=== PATIENT | female | born 1990 | race Caucasian/White ===

== ENCOUNTER 2016-12-17 15:38 | Outpatient (CLI) | payer MEDICAID ==
[2016-12-17] MEDS ORDERED: ONDANSETRON HCL 8 MG TABLET PO ONE (16:16)
[2016-12-17] MEDS ORDERED: ONDANSETRON 4 MG TAB.RAPDIS ONE (16:42)
[2016-12-17] MEDS ORDERED: METRONIDAZOLE 500 MG TABLET PO ONE (17:00)
--- NOTE | 2016-12-17 17:42 | RADIOLOGY REPORT (SQ) ---
EXAM DESCRIPTION: U/S OB LIMITED COMPLETED DATE/TIME: 12/17/2016 5:33 pm REASON FOR STUDY: irreg contractions, 23wks, eval cervical length COMPARISON: None. TECHNIQUE: Limited transvaginal and transabdominal grayscale ultrasound for evaluation of specific r equested obstetrical parameters. LIMITATIONS: None. FINDINGS: CERVICAL LENGTH: 3.6 cm. Closed. JOSEPH: Largest pocket 6.4 cm. FHR: 152 beats per minute. PRESENTATION: Breech. OTHER: No other significant findings. IMPRESSION: LIMITED OBSTETRICAL ULTRASOUND WITH MEASURED PARAMETERS DELINEATED ABOVE. Trimester of : Second trimester - 13 weeks 1 day to 27 weeks 6 days. TECHNICAL DOCUMENTATION: JOB ID: [id number] [employer]- All Rights Reserved
[2016-12-17 19:02] LABS: CHLAM PCR NOT DETECTED (NOT DETECT)
[2016-12-17 19:16] LABS: URINE BARBITURATES SCREEN NEGATIVE; URINE METHADONE SCREEN NEGATIVE; URINE OPIATES LOW NEGATIVE; URINE PHENCYCLIDINE SCREEN NEGATIVE
[2016-12-17 19:59] LABS: APPEARANCE,URINE CLEAR; BILIRUBIN,URINE NEGATIVE (NEGATIVE); GLUCOSE, URINE NEGATIVE (NEGATIVE); KETONES,URINE NEGATIVE (NEGATIVE); LEUKOCYTE ESTERASE,URINE NEGATIVE (NEGATIVE); NITRITE,URINE NEGATIVE (NEGATIVE); PROTEIN,URINE NEGATIVE (NEGATIVE); URINE SPECIFIC GRAVITY 1.004; UROBILINOGEN,URINE NEGATIVE mg/dL (<2.0)
== END 2016-12-17 19:20 | disposition home or self-care (01) ==
LOC: LC 15:38
PROVIDERS: ATTEND Student in an Organized Health Care Education/Training Program
PROC: 4A1HXCZ Monitoring of Products of Conception, Cardiac Rate, External Approach (ICD-10-PCS; principal; 2016-12-17)
DX: Z36 Encounter for antenatal screening of mother (principal); Z34.92 Encounter for supervision of normal pregnancy, unspecified, second trimester; Z3A.23 23 weeks gestation of pregnancy
CPT/HCPCS: 59899; 81001; 87081; 80307; 87491; 87591; 76815; S0119; J3490

== ENCOUNTER 2017-01-08 19:33 | Outpatient (CLI) | payer MEDICAID ==
[2017-01-08 20:14] LABS: APPEARANCE,URINE CLEAR; BILIRUBIN,URINE NEGATIVE (NEGATIVE); GLUCOSE, URINE NEGATIVE (NEGATIVE); KETONES,URINE NEGATIVE (NEGATIVE); LEUKOCYTE ESTERASE,URINE NEGATIVE (NEGATIVE); NITRITE,URINE NEGATIVE (NEGATIVE); PROTEIN,URINE NEGATIVE (NEGATIVE); URINE SPECIFIC GRAVITY 1.001; UROBILINOGEN,URINE NEGATIVE mg/dL (<2.0)
[2017-01-08 20:53] LABS: URINE BARBITURATES SCREEN NEGATIVE; URINE METHADONE SCREEN NEGATIVE; URINE OPIATES LOW NEGATIVE; URINE PHENCYCLIDINE SCREEN NEGATIVE
--- NOTE | 2017-01-08 21:03 | RADIOLOGY REPORT (SQ) ---
EXAM DESCRIPTION: U/S OB LIMITED COMPLETED DATE/TIME: 01/08/2017 8:43 pm REASON FOR STUDY: cervical length, well being COMPARISON: 12/17/2016. TECHNIQUE: Limited transvaginal and transabdominal grayscale ultrasound for evaluation of specific r equested obstetrical parameters. LIMITATIONS: None. FINDINGS: CERVICAL LENGTH: 3.4 cm. Closed. JOSEPH: Largest pocket 7.1 cm. FHR: 152 beats per minute. PRESENTATION: Cephalic. PLACENTA: Anterior. OTHER: No other significant findings. IMPRESSION: LIMITED OBSTETRICAL ULTRASOUND WITH MEASURED PARAMETERS DELINEATED ABOVE. Trimester of : Second trimester - 13 weeks 1 day to 27 weeks 6 days. TECHNICAL DOCUMENTATION: JOB ID: [id number] [employer]- All Rights Reserved
== END 2017-01-08 22:07 | disposition home or self-care (01) ==
LOC: LC 19:33
PROVIDERS: ATTEND Obstetrics & Gynecology
DX: O47.00 False labor before 37 completed weeks of gestation, unspecified trimester (principal)
CPT/HCPCS: 76815; 80307; 81001

== ENCOUNTER 2017-01-11 08:48 | Outpatient (CLI) | payer MEDICAID ==
[2017-01-11 09:32] LABS: APPEARANCE,URINE CLOUDY; BILIRUBIN,URINE NEGATIVE (NEGATIVE); GLUCOSE, URINE NEGATIVE (NEGATIVE); KETONES,URINE TRACE mg/dL (NEGATIVE); LEUKOCYTE ESTERASE,URINE TRACE (NEGATIVE); NITRITE,URINE NEGATIVE (NEGATIVE); PROTEIN,URINE 100 mg/dL (NEGATIVE); URIC ACID CRYSTALS,URINE MODERATE /HPF; URINE SPECIFIC GRAVITY 1.034
[2017-01-11 09:33] LABS: AMNISURE (ROM) NEGATIVE (NEGATIVE)
[2017-01-11 09:50] LABS: URINE BARBITURATES SCREEN NEGATIVE; URINE METHADONE SCREEN NEGATIVE; URINE OPIATES LOW NEGATIVE; URINE PHENCYCLIDINE SCREEN NEGATIVE
--- NOTE | 2017-01-11 12:26 | RADIOLOGY REPORT (SQ) ---
EXAM DESCRIPTION: U/S OB LIMITED COMPLETED DATE/TIME: 01/11/2017 12:17 pm REASON FOR STUDY: cervical length, JOSEPH - patient with contractions COMPARISON: 01/08/2017. TECHNIQUE: Limited transabdominal grayscale ultrasound for evaluation of specific requested obstetri madina parameters. LIMITATIONS: None. FINDINGS: CERVICAL LENGTH: 3.1 cm. Closed. JOSEPH: Largest pocket 9.2 cm. FHR: 152 beats per minute. PRESENTATION: Cephalic. OTHER: No other significant findings. IMPRESSION: LIMITED OBSTETRICAL ULTRASOUND WITH MEASURED PARAMETERS DELINEATED ABOVE. Trimester of : Second trimester - 13 weeks 1 day to 27 weeks 6 days. TECHNICAL DOCUMENTATION: JOB ID: [id number] [employer]- All Rights Reserved
[2017-01-11] MEDS ORDERED: IBUPROFEN 800 MG TABLET PO ONE (12:58)
[2017-01-11] MEDS ORDERED: IBUPROFEN 800 MG TABLET ONE (13:03)
[2017-01-11 15:09] LABS: CHLAM PCR NOT DETECTED (NOT DETECT)
== END 2017-01-11 15:35 | disposition home or self-care (01) ==
LOC: LC 08:48
PROVIDERS: ATTEND Specialist
PROC: 4A1HXCZ Monitoring of Products of Conception, Cardiac Rate, External Approach (ICD-10-PCS; principal; 2017-01-11)
DX: O47.02 False labor before 37 completed weeks of gestation, second trimester (principal); Z3A.27 27 weeks gestation of pregnancy
CPT/HCPCS: 59899; 84112; 87210; 81001; 80307; 87491; 87591; 76815; J3490

== ENCOUNTER 2017-01-16 14:52 | Outpatient (CLI) | payer MEDICAID ==
[2017-01-16 15:40] LABS: APPEARANCE,URINE CLEAR; BILIRUBIN,URINE NEGATIVE (NEGATIVE); GLUCOSE, URINE NEGATIVE (NEGATIVE); KETONES,URINE 20 mg/dL (NEGATIVE); LEUKOCYTE ESTERASE,URINE NEGATIVE (NEGATIVE); NITRITE,URINE NEGATIVE (NEGATIVE); PROTEIN,URINE NEGATIVE (NEGATIVE); URINE SPECIFIC GRAVITY 1.001; UROBILINOGEN,URINE NEGATIVE mg/dL (<2.0)
[2017-01-16 15:59] LABS: URINE BARBITURATES SCREEN NEGATIVE; URINE METHADONE SCREEN NEGATIVE; URINE OPIATES LOW NEGATIVE; URINE PHENCYCLIDINE SCREEN NEGATIVE
--- NOTE | 2017-01-16 16:21 | RADIOLOGY REPORT (SQ) ---
EXAM DESCRIPTION: U/S OB LIMITED COMPLETED DATE/TIME: 01/16/2017 4:12 pm REASON FOR STUDY: ctx, bleeding. Cervical length COMPARISON: None. TECHNIQUE: Limited transabdominal grayscale ultrasound for evaluation of specific requested obstetri madina parameters. LIMITATIONS: None. FINDINGS: CERVICAL LENGTH: 3.4 cm Closed. JOSEPH: 18.3 cm. FHR: 136 beats per minute. PRESENTATION: Cephalic. OTHER: No other significant findings. IMPRESSION: LIMITED OBSTETRICAL ULTRASOUND WITH MEASURED PARAMETERS DELINEATED ABOVE. Trimester of : Second trimester - 13 weeks 1 day to 27 weeks 6 days. TECHNICAL DOCUMENTATION: JOB ID: [id number] [employer]- All Rights Reserved
== END 2017-01-16 17:08 | disposition home or self-care (01) ==
LOC: LC 14:52
PROVIDERS: ATTEND Obstetrics & Gynecology
DX: O47.03 False labor before 37 completed weeks of gestation, third trimester (principal); Z3A.28 28 weeks gestation of pregnancy
CPT/HCPCS: 76815; 80307; 81001

== ENCOUNTER 2017-01-24 01:28 | Outpatient (CLI) | payer MEDICAID ==
[2017-01-24 02:33] LABS: APPEARANCE,URINE CLEAR; BILIRUBIN,URINE NEGATIVE (NEGATIVE); GLUCOSE, URINE NEGATIVE (NEGATIVE); KETONES,URINE NEGATIVE (NEGATIVE); LEUKOCYTE ESTERASE,URINE SMALL (NEGATIVE); NITRITE,URINE NEGATIVE (NEGATIVE); PROTEIN,URINE 30 mg/dL (NEGATIVE); URINE SPECIFIC GRAVITY 1.011; UROBILINOGEN,URINE NEGATIVE mg/dL (<2.0)
[2017-01-24 02:46] LABS: URINE BARBITURATES SCREEN NEGATIVE; URINE METHADONE SCREEN NEGATIVE; URINE OPIATES LOW NEGATIVE; URINE PHENCYCLIDINE SCREEN NEGATIVE
[2017-01-24 04:30] LABS: CHLAM PCR NOT DETECTED (NOT DETECT)
--- NOTE | 2017-01-24 04:39 | RADIOLOGY REPORT (SQ) ---
EXAM DESCRIPTION: U/S OB LIMITED COMPLETED DATE/TIME: 01/24/2017 3:41 am REASON FOR STUDY: Cervical length d/t contractions . The patient is 29 weeks 0 days pregnan t. COMPARISON: US OB 01/16/2017. TECHNIQUE: Limited transvaginal and transabdominal grayscale ultrasound for evaluation of specific r equested obstetrical parameters. LIMITATIONS: None. FINDINGS: CERVICAL LENGTH: 3.1 cm. Closed. FHR: 125 beats per minute. PRESENTATION: Vertex. IMPRESSION: LIMITED OBSTETRICAL ULTRASOUND WITH MEASURED PARAMETERS DELINEATED ABOVE. Trimester of : Third trimester - 28 weeks to delivery. TECHNICAL DOCUMENTATION: JOB ID: [id number] [employer]- All Rights Reserved
== END 2017-01-24 06:25 | disposition home or self-care (01) ==
LOC: LC 01:28
PROVIDERS: ATTEND Obstetrics & Gynecology
DX: O47.03 False labor before 37 completed weeks of gestation, third trimester (principal); Z3A.29 29 weeks gestation of pregnancy
CPT/HCPCS: 76815; 80307; 81001; 87491; 87591

== ENCOUNTER 2017-02-10 15:41 | Inpatient (IN) | payer MEDICAID ==
[2017-02-10] MEDS ORDERED: MORPHINE SULFATE 10 MG/ML INJ ONE (16:43)
[2017-02-10 17:19] LABS: APPEARANCE,URINE CLEAR; BILIRUBIN,URINE NEGATIVE (NEGATIVE); GLUCOSE, URINE NEGATIVE (NEGATIVE); KETONES,URINE NEGATIVE (NEGATIVE); LEUKOCYTE ESTERASE,URINE NEGATIVE (NEGATIVE); NITRITE,URINE NEGATIVE (NEGATIVE); PROTEIN,URINE NEGATIVE (NEGATIVE); URINE SPECIFIC GRAVITY 1.002; UROBILINOGEN,URINE NEGATIVE mg/dL (<2.0)
[2017-02-10 17:46] LABS: URINE BARBITURATES SCREEN NEGATIVE; URINE METHADONE SCREEN NEGATIVE; URINE OPIATES LOW NEGATIVE; URINE PHENCYCLIDINE SCREEN NEGATIVE
[2017-02-10] MEDS ORDERED: MAGNESIUM SULFATE 8 GM/200 ML RTUPB IV ONE (19:02)
[2017-02-10] MEDS ORDERED: BETAMET ACET/BETAMET NA INJ 6 MG/1 ML ONE (19:02)
[2017-02-10] MEDS ORDERED: BETAMET ACET/BETAMET NA INJ 6 MG/1 ML IM ONE (19:36)
[2017-02-10] MEDS ORDERED: ONDANSETRON HCL INJ/PF 4 MG/2 ML SDV ONE (19:37)
[2017-02-10] MEDS ORDERED: MAGNESIUM SULFATE 20 GM/500 ML RTUINJ IV PRN (20:00)
[2017-02-10] MEDS ORDERED: MAGNESIUM SULFATE 4 GM/100 ML RTUPB IV ONE (20:21)
[2017-02-10] MEDS ORDERED: PENICILLIN G-K 5 MILLION UNIT VIAL ONE (20:22)
[2017-02-10] MEDS ORDERED: PENICILLIN G POTASSIUM 5,000,000 UNIT in DEXTROSE 5%-WATER 100 ML IV ONE (20:27)
[2017-02-10] MEDS ORDERED: ONDANSETRON HCL INJ/PF 4 MG/2 ML SDV IV ONE (21:23)
[2017-02-10] MEDS ORDERED: ZOLPIDEM TARTRATE 5 MG TABLET PO ONE (22:21)
[2017-02-10] MEDS ORDERED: ZOLPIDEM TARTRATE 5 MG TABLET ONE (22:23)
[2017-02-10 23:06] LABS: CHLAM PCR NOT DETECTED (NOT DETECT)
--- NOTE | 2017-02-11 00:16 | L&D Progress Notes ---
PROGRESS NOTES Datetime Report Generated by CPN: 02/11/2017 00:16 PROGRESS NOTE Impression: Labor Plan: Tocolysis; Transfer Comment: wet prep and gc/chlam neg cont magnesium, steroids, gbs prophylaxis. Contacted [facility] and Dr. Silvia Odibo accepts pt in transfer for availability of higher level NICU. VAGINAL EXAM Dilatation: 3 Effacement: 50 Station: -4 FETUS A FHR Category: Category I SIGNATURE SIGNATURE: [id number] Signature: with User ID: [email or web address]
[2017-02-11] MEDS ORDERED: PENICILLIN G-K 5 MILLION UNIT VIAL IV SCH (00:28)
[2017-02-11] MEDS ORDERED: PENICILLIN G POTASSIUM 2,500,000 UNIT in DEXTROSE 5%-WATER 50 ML IV SCH (00:28)
[2017-02-11] MEDS ORDERED: PENICILLIN G-K 5 MILLION UNIT VIAL ONE (00:49)
[2017-02-11] MEDS ORDERED: PROMETHAZINE HCL INJ 25 MG/1 ML VIAL IV ONE (01:03)
[2017-02-11] MEDS ORDERED: PROMETHAZINE HCL INJ 25 MG/1 ML VIAL ONE (01:05)
--- NOTE | 2017-03-02 07:48 | Admission Physical ---
Datetime Report Generated by SMOOTH: 03/02/2017 07:48 Hx Assessment: The History has been Reviewed and is Current Chief Complaint: Uterine Contractions Admit Plan: Initiate Labor Protocol Medication Allergies: Yes Medication Allergies: nitrofurantoin macrocrystalline/MO/GI upset (02/10/2017); nitrofurantoin/MO/GI upset (02/10/2017) Medication Allergies: nitrofurantoin macrocrystalline/MO/GI upset (01/24/2017); nitrofurantoin/MO/GI upset (01/24/2017) Medication Allergies: nitrofurantoin macrocrystalline/MO/GI upset (01/11/2017); nitrofurantoin/MO/GI upset (01/11/2017) Medication Allergies: nitrofurantoin macrocrystalline/MO/GI upset (01/08/2017); nitrofurantoin/MO/GI upset (01/08/2017) Medication Allergies: nitrofurantoin macrocrystalline/MO/GI upset (12/17/2016); nitrofurantoin/MO/GI upset (12/17/2016) Medication Allergies: nitrofurantoin macrocrystalline/MO/GI upset (10/01/2011); nitrofurantoin/MO/GI upset (10/01/2011) Food Allergies: denies Environmental Allergies: denies EDC: 04/11/2017 00:00 : 7 Para: 3 Term: 3 : 0 SAB: 3 IAB: 0 Ectopic: 0 Livin Cesareans: 0 VBACs: 0 Multiple Births: 0 Gestational Diabetes: No Rh Sensitization: No Incompetent Cervix: No CORINA: No Infertility: No ART Treatment: No Uterine Anomaly: No IUGR: No Hx Previous C/S: No Macrosomia: No Hx Loss/Stillborn: No PIH: No Hx : No Placenta Previa/Abruption: No Depression/PP Depression: No PTL/PROM: No Post Hemorrhage: No Current Procedures: Ultrasound; NST Alcohol: No Marijuana : No Cocaine: No Other Illicit Drugs: No Cigarettes: Never Smoker. [id number] Diabetes: No Blood Transfusion: No Pulmonary Disease (Asthma, TB): No Breast Disease: No Hypertension: No Finisher Screwdown Surgery: No Heart Disease: No Hosp/Surgery: Yes Autoimmune Disorder: No Anesthetic Complications: No Kidney Disease: No Abnormal Pap Smear: No Neuro/Epilepsy: No Psychiatric Disorders: No Other Medical Diseases: No Hepatitis/Liver Disease: No Significant Family History: No Varicosities/Phlebitis: No Trauma/Violence : No Thyroid Dysfunction: No Gonorrhea: No Genital Herpes: No Chlamydia: Yes Tuberculosis: No Syphilis: No Hepatitis: No HIV/AIDS Exposure: No Rash or Viral Illness: No HPV: No General: Normal HEENT: Normal Neurologic: Normal Thyroid: Normal Heart: Normal Lungs: Normal Breast: Normal Back: Normal Abdomen: Normal Genitourinary Exam: Normal Extremities: Normal DTRs: Normal Pelvic Type: Adequate Physical Exam Comments: sve //high on arrival and changed to -/high known polyhydramnios Monitoring: External US FHR Category: Category I Admit Comment: admit for magnesium neuroprophylaxis and tocolysis, steroids for flm and gbs prophylaxis -check wet prep, gbs, gc/chlam Labor and Delivery: None Pain Management: None Feeding Preference: Breast Benefit of Breast Feed Discussed: Yes Circumcision: Yes Signature: with User ID: [email or web address]
--- NOTE | 2017-03-05 08:58 | TRANSFER SUMMARY E ---
Transfer Summary NAME: DANIA JARAMILLO : 1990 AGE: 26Y ADMITTED: 02/10/2017 TRANSFERRED: 03/05/2017 HOSPITAL COURSE: The patient is a 26-year-old G7, P3 who was admitted at 31+ weeks with labor. She was given magnesium, neuroprophylaxis and tocolysis as well as steroids for lung maturity and GBS prophylaxis. Despite the magnesium, her cervix progressively changed and she had increasing force and frequency of contractions. At the time of transfer, her cervix was 3, 50% and -1. heart tones were reassuring. She was transferred to [facility] with Silvia Guerrero MD accepting the patient due to their higher level of NICU care. She was transferred on her magnesium tocolysis and the GBS prophylaxis. DICTATING PHYSICIAN: LENNY COBURN M.D. [id number] PHY#: [id number] ID: [id number] JOB#: [id number] ACCT: [id number] cc:LENNY COBURN M.D. >
== END 2017-02-11 02:49 | disposition short-term general hospital (02) | DRG 778 ==
LOC: LC 15:41 → LR 20:01
PROVIDERS: ADMIT Specialist; ATTEND Specialist
PROC: 4A1HXCZ Monitoring of Products of Conception, Cardiac Rate, External Approach (ICD-10-PCS; principal; 2017-02-10)
DX: O60.00 Preterm labor without delivery, unspecified trimester (principal); O99.820 Streptococcus B carrier state complicating pregnancy; Z3A.31 31 weeks gestation of pregnancy
CPT/HCPCS: 80307; 81001; 87081; 87210; 87491; 87591; 96372; J0702; J2270; J2405; J2540; J2550; J3475

== ENCOUNTER 2017-02-25 21:41 | Outpatient (CLI) | payer MEDICAID ==
[2017-02-25] MEDS ORDERED: TERBUTALINE SULFATE INJ/PF 1 MG/1 ML SDV ONE (22:17)
[2017-02-25] MEDS ORDERED: TERBUTALINE SULFATE INJ/PF 1 MG/1 ML SDV SUBCUT ONE (22:18)
[2017-02-25] MEDS ORDERED: RINGERS SOLUTION,LACTATED 1,000 ML IV ONE (22:18)
[2017-02-25 22:32] LABS: APPEARANCE,URINE CLEAR; BILIRUBIN,URINE NEGATIVE (NEGATIVE); GLUCOSE, URINE NEGATIVE (NEGATIVE); KETONES,URINE 20 mg/dL (NEGATIVE); LEUKOCYTE ESTERASE,URINE NEGATIVE (NEGATIVE); NITRITE,URINE NEGATIVE (NEGATIVE); PROTEIN,URINE NEGATIVE (NEGATIVE); URINE SPECIFIC GRAVITY 1.002; UROBILINOGEN,URINE NEGATIVE mg/dL (<2.0)
[2017-02-25 22:45] LABS: URINE BARBITURATES SCREEN NEGATIVE; URINE METHADONE SCREEN NEGATIVE; URINE OPIATES LOW NEGATIVE; URINE PHENCYCLIDINE SCREEN NEGATIVE
--- NOTE | 2017-02-25 23:43 | Non Stress Test Report ---
Non Stress Test Datetime Report Generated by CPN: 02/25/2017 23:42 DEMOGRAPHIC EGA NST: 33.4 INDICATION Indication for Study: labor; Ordered by Provider MONITORING Monitor Explained: Monitor Explained; Test Explained; Patient Verbalized Understanding Time on Monitor: 02/25/2017 21:59 Time off Monitor: 02/25/2017 23:41 NST Duration: 102 NST INTERVENTIONS NST Interventions: PO Hydration; IV Fluids; Reposition Patient Physician Notified NST: Chakraborty BABY A: [id number] BABY A Movement : Present Contraction Frequency : irregular FHR Baseline : 135 Accelerations : 15X15 Variability : Moderate 6-25bpm NST Review: Meets Criteria for Reactive NST NST Review and Verified By : Ran Aponte RN NST Results: Reactive NST REPORT Report Trigger: Send Report
--- NOTE | 2017-03-02 07:46 | Delivery Summary ---
Del Sum A-C Datetime Report Generated by CPN: 03/02/2017 07:46 DELIVERY PERSONNEL DELIVERY PERSONNEL: [id number] LABOR SUMMARY EDC: 04/11/2017 00:00 No. Babies in Womb: 1 LABOR INFORMATION Group B Beta Strep: 1 NO GROUP B STREPTOCOCCUS RECOVERED Group B Beta Strep: 1 NO GROUP B STREPTOCOCCUS RECOVERED
== END 2017-02-26 00:03 | disposition home or self-care (01) ==
LOC: LC 21:41
PROVIDERS: ATTEND Obstetrics & Gynecology
PROC: 4A1HXCZ Monitoring of Products of Conception, Cardiac Rate, External Approach (ICD-10-PCS; principal; 2017-02-25)
DX: O47.03 False labor before 37 completed weeks of gestation, third trimester (principal); Z3A.33 33 weeks gestation of pregnancy
CPT/HCPCS: 59025; 81001; 80307; J3105

== ENCOUNTER 2017-03-26 01:09 | Inpatient (IN) | payer MEDICAID ==
[2017-03-26] MEDS ORDERED: RINGERS SOLUTION,LACTATED 1,000 ML IV PRN (01:48)
[2017-03-26] MEDS ORDERED: RINGERS SOLUTION,LACTATED 1,000 ML IV ONE (01:48)
[2017-03-26] MEDS ORDERED: MISOPROSTOL 0.2 MG TABLET ONE (02:06)
[2017-03-26] MEDS ORDERED: LIDOCAINE 1% INJ-PF (10 MG/ML) 30 ML SDV ONE (02:06)
[2017-03-26] MEDS ORDERED: OXYTOCIN/NORMAL SALINE 20 UNIT/1,000 ML RTUINJ ONE (02:06)
[2017-03-26 02:14] LABS: APPEARANCE,URINE CLEAR; BILIRUBIN,URINE NEGATIVE (NEGATIVE); GLUCOSE, URINE NEGATIVE (NEGATIVE); KETONES,URINE NEGATIVE (NEGATIVE); LEUKOCYTE ESTERASE,URINE NEGATIVE (NEGATIVE); NITRITE,URINE NEGATIVE (NEGATIVE); PROTEIN,URINE NEGATIVE (NEGATIVE); URINE SPECIFIC GRAVITY 1.005; UROBILINOGEN,URINE NEGATIVE mg/dL (<2.0)
[2017-03-26 02:31] LABS: URINE BARBITURATES SCREEN NEGATIVE; URINE METHADONE SCREEN NEGATIVE; URINE OPIATES LOW NEGATIVE; URINE PHENCYCLIDINE SCREEN NEGATIVE
[2017-03-26 02:42] LABS: ABSOLUTE LYMPHOCYTES (AUTO) 1.5 10^3/uL (0.5-4.7); ABSOLUTE MONOCYTES (AUTO) 0.5 10^3/uL (0.1-1.4); ABSOLUTE NEUT (AUTO) 7.7 10^3/uL (1.7-8.2); BASOPHILS % (AUTO) 0.4 % (0-2); EOSINOPHILS % (AUTO) 0.2 % (0-6); HEMATOCRIT 32.1 % (36.0-47.0); HEMOGLOBIN 11.4 g/dL (12.0-15.5); HGB HCT DIFFERENCE 2.1; LYMPHOCYTES % (AUTO) 15.5 % (13-45); MEAN CORPUSCULAR HGB CONC 35.6 g/dL (32.0-36.0); MEAN CORPUSCULAR VOLUME 82 fl (80-97); MONOCYTES % (AUTO) 5.2 % (3-13); RED BLOOD COUNT 3.94 10^6/uL (3.72-5.28); SEGMENTED NEUTROPHILS % (AUTO) 78.7 % (42-78); WHITE BLOOD COUNT 9.7 10^3/uL (4.0-10.5)
[2017-03-26] MEDS ORDERED: GLYCERIN/WITCH HAZEL LEAF 1 EACH MED..PAD TP PRN (03:43)
[2017-03-26] MEDS ORDERED: PROMETHAZINE HCL INJ 25 MG/1 ML VIAL IV PRN (03:43)
[2017-03-26] MEDS ORDERED: DIBUCAINE 1% OINTMENT 28 GM TP PRN (03:43)
[2017-03-26] MEDS ORDERED: ACETAMINOPHEN WITH CODEINE #3 TABLET PO PRN (03:43)
[2017-03-26] MEDS ORDERED: ACETAMINOPHEN 650 MG SUPP.RECT PR PRN (03:43)
[2017-03-26] MEDS ORDERED: MAGNESIUM HYDROXIDE SUSP 30 ML UDCUP PO PRN (03:43)
[2017-03-26] MEDS ORDERED: DIPHENHYDRAMINE HCL 25 MG CAPSULE PO PRN (03:43)
[2017-03-26] MEDS ORDERED: PROMETHAZINE HCL 25 MG SUPP.RECT PR PRN (03:43)
[2017-03-26] MEDS ORDERED: PSEUDOEPHEDRINE HCL 30 MG TABLET PO PRN (03:43)
[2017-03-26] MEDS ORDERED: PROMETHAZINE HCL 25 MG TABLET PO PRN (03:43)
[2017-03-26] MEDS ORDERED: MEASLES,MUMPS&RUBELLA VACC/PF 0.5 ML VIAL SUBCUT PRN (03:43)
[2017-03-26] MEDS ORDERED: NA PHOS,M-B/NA PHOS,DI-BA (ADULT) 133 ML ENEMA PR PRN (03:43)
[2017-03-26] MEDS ORDERED: DIPH/PERTUSS(ACELL)/TETANUS VAC/PF 0.5 ML SYR (>=10YO) IM PRN (03:43)
[2017-03-26] MEDS ORDERED: ZOLPIDEM TARTRATE 5 MG TABLET PO PRN (03:43)
[2017-03-26] MEDS ORDERED: BENZOCAINE/MENTHOL AEROSOL SPRAY 56 ML TOP PRN (03:43)
[2017-03-26] MEDS ORDERED: OXYTOCIN/NORMAL SALINE 20 UNIT/1,000 ML RTUINJ IV PRN (03:43)
--- NOTE | 2017-03-26 04:47 | Delivery Summary ---
Del Sum A-C Datetime Report Generated by CPN: 03/26/2017 04:47 DELIVERY PERSONNEL DELIVERY PERSONNEL: [id number] Delivery Doctor:: Mesfin Pace MD Labor and Delivery Nurse:: Lissy Kaiser RNassistant production editor Nurse:: Yulissa Post RN Nursery Nurse:: Zari Gaines RN Material Man/PLUG ASSEMBLER: Criss Bryant Additional Personnel: : Malissa Osorio RN MATERNAL INFORMATION Delivery Anesthesia: None Medications After Delivery: Pitocin Drip 20 Units/1000ml NSS Estimated Blood Loss (ml): 250 Maternal Complications: Precipitous Labor (<3hrs) LABOR SUMMARY EDC: 04/11/2017 00:00 No. Babies in Womb: 1 Attempted: No Labor Anesthesia: None LABOR INFORMATION Reason for Induction: Not Applicable Onset of Labor: 03/26/2017 00:20 Complete Dilatation: 03/26/2017 03:08 Oxytocin: N/A Group B Beta Strep: Negative Antibiotics # of Doses: 0 Steroids Given: None Reason Steroids Not Administered: Not Applicable MEMBRANES Membranes Rupture Method: Spontaneous Rupture of Membranes: 03/26/2017 00:20 Length of Rupture (hr): 2.93 Amniotic Fluid Color: Clear Amniotic Fluid Amount: Large Amniotic Fluid Odor: Normal STAGES OF LABOR Stage 1 hr: 2 Stage 1 min: 48 Stage 2 hr: 0 Stage 2 min: 8 Stage 3 hr: 0 Stage 3 min: 4 Total Time in Labor hr: 3 Total Time in Labor min: 0 VAGINAL DELIVERY Episiotomy: None Laceration #1: None Laceration Extension #1: N/A Laceration #2: None Laceration Extension #2: N/A Laceration #3: None Laceration Extension #3: N/A Laceration Repair: Not Applicable Sponge Count Correct: N/A; Vaginal Sweep Performed Sharps Count Correct: N/A CSECTION DELIVERY Primary Indication: N/A Secondary Indication: N/A CSection Incidence: N/A Labor: N/A Elective: N/A CSection Incision: N/A BABY A INFORMATION Infant Delivery Date/Time: 03/26/2017 03:16 Method of Delivery: Vaginal Born in Route : No : N/A Forceps: N/A Vacuum Extraction: N/A Shoulder Dystocia : No PRESENTATION/POSITION BABY A Presentation: Cephalic Cephalic Presentation: Vertex Vertex Position: Right Occipital Anterior Breech Presentation: N/A PLACENTA INFORMATION BABY A Placenta Delivery Time : 03/26/2017 03:20 Placenta Method of Delivery: Spontaneous Placenta Status: Delivered SCORES BABY A Heart Rate 1 min: >100 bpm Resp Effort 1 min: Good Cry Reflex Irritability 1 min: Cough or Sneeze or Pulls Away Muscle Tone 1 min: Active Motion Color 1 min: Blue/Pale Resuscitation Effort 1 min: Tactile Stimulation SCORE 1 MIN: 8 Heart Rate 5 min: >100 bpm Resp Effort 5 min: Good Cry Reflex Irritability 5 min: Cough or Sneeze or Pulls Away Muscle Tone 5 min: Active Motion Color 5 min: Body [place], Extremities Blue Resuscitation Effort 5 min: Tactile Stimulation SCORE 5 MIN: 9 INFANT INFORMATION BABY A Gestational Age at Delivery: 37.5 Gestational Status: Early Term- 37- 38.6 Weeks Outcome : Liveborn Infant Condition : Stable Infant Sex: Male IDENTIFICATION BABY A Infant Verification Date/Time: 03/26/2017 03:36 ID Band Number: [id number] Mother's Name Verified: Yes RN Verifying Infant: S. Lattibeaudeir, RN _ O. Ledgerwood, RN WEIGHT/LENGTH BABY A Birthweight (gm): 3430 Weight (lb): 7 Weight (oz): 9 Length (in): 20.00 Infant Length (cm): 50.80 CORD INFORMATION BABY A No. Cord Vessels: 3 Nuchal Cord : Around Neck x1, Loose Cord Blood Taken: Yes-For Eval (Mom's Blood Type - or O+) Infant Suction: Mouth; Nose ASSESSMENT BABY A Infant Complications: None Physical Findings at Delivery: Within Normal Limits Respirations: Appears Normal Skin to Skin: Yes Warehouse Supervisor/ALS Called : No Care By: OMichael Momogaby, RN Transferred To: Remains with Mother BABY B INFORMATION : N/A SIGNATURES Signature: with User ID: [email or web address]
--- NOTE | 2017-03-26 05:32 | Admission Physical ---
Datetime Report Generated by CPN: 03/26/2017 05:32 CURRENT ADMISSION Hx Assessment: The History has been Reviewed and is Current Chief Complaint: Uterine Contractions Chief Complaint: Uterine Contractions Indication for Induction: Not Applicable Indication for Induction: Term, Intrauterine Indication for Induction: , Intrauterine Admit Plan: Admit to Unit; Initiate Labor Protocol Admit Plan: Initiate Labor Protocol ALLERGIES Medication Allergies: Yes Medication Allergies: nitrofurantoin macrocrystalline/MO/GI upset (02/10/2017); nitrofurantoin/MO/GI upset (02/10/2017) Medication Allergies: nitrofurantoin macrocrystalline/MO/GI upset (01/24/2017); nitrofurantoin/MO/GI upset (01/24/2017) Medication Allergies: nitrofurantoin macrocrystalline/MO/GI upset (01/11/2017); nitrofurantoin/MO/GI upset (01/11/2017) Medication Allergies: nitrofurantoin macrocrystalline/MO/GI upset (01/08/2017); nitrofurantoin/MO/GI upset (01/08/2017) Medication Allergies: nitrofurantoin macrocrystalline/MO/GI upset (12/17/2016); nitrofurantoin/MO/GI upset (12/17/2016) Medication Allergies: nitrofurantoin macrocrystalline/MO/GI upset (10/01/2011); nitrofurantoin/MO/GI upset (10/01/2011) Latex: No Latex Allergies Food Allergies: denies Environmental Allergies: denies OBSTETRICAL HISTORY EDC: 04/11/2017 00:00 : 7 Para: 3 Term: 3 : 0 SAB: 3 IAB: 0 Ectopic: 0 Livin Cesareans: 0 VBACs: 0 Multiple Births: 0 Gestational Diabetes: No Rh Sensitization: No Incompetent Cervix: No CORINA: No Infertility: No ART Treatment: No Uterine Anomaly: No IUGR: No Hx Previous C/S: No Macrosomia: No Hx Loss/Stillborn: No PIH: No Hx : No Placenta Previa/Abruption: No Depression/PP Depression: No PTL/PROM: No Post Hemorrhage: No Current Procedures: Ultrasound; NST Obstetrical History Comments: G1:2008 41 week 6 lb 12 oz G2: 2010 5 week SAB G3: 2011 38.5 week 6 lb 10 oz G4: 2012 6 week SAB G5: 2012 8 week SAB G6:2013 40 week 7 lb 12 oz G7: current , PTL SEE RECORDS Alcohol: No Marijuana : No Cocaine: No Other Illicit Drugs: No Cigarettes: Never Smoker. [id number] MEDICAL HISTORY Diabetes: No Blood Transfusion: No Pulmonary Disease (Asthma, TB): No Breast Disease: No Hypertension: No Sugarcane Research Technician Surgery: No Heart Disease: No Hosp/Surgery: Yes Autoimmune Disorder: No Anesthetic Complications: No Kidney Disease: No Abnormal Pap Smear: No Neuro/Epilepsy: No Psychiatric Disorders: No Other Medical Diseases: No Hepatitis/Liver Disease: No Significant Family History: No Varicosities/Phlebitis: No Trauma/Violence : No Thyroid Dysfunction: No Medical History Comments: tonisils and adenoids-2007 INFECTIOUS HISTORY Gonorrhea: No Genital Herpes: No Chlamydia: Yes Tuberculosis: No Syphilis: No Hepatitis: No HIV/AIDS Exposure: No Rash or Viral Illness: No HPV: No Infectious History Comments: chlamydia August 2016, trichomonas november 2016 PHYSICAL EXAM General: Normal General: Normal HEENT: Normal HEENT: Normal Neurologic: Normal Neurologic: Normal Thyroid: Normal Thyroid: Normal Heart: Normal Heart: Normal Lungs: Normal Lungs: Normal Breast: Deferred Breast: Normal Back: Normal Back: Normal Abdomen: Normal Abdomen: Normal Genitourinary Exam: Normal Genitourinary Exam: Normal Extremities: Normal Extremities: Normal DTRs: Normal DTRs: Normal Pelvic Type: Adequate Pelvic Type: Adequate Physical Exam Comments: sve 1/th/high on arrival and changed to 1-2/50/high known polyhydramnios Vital Signs: Reviewed VAGINAL EXAM Dilatation: 3 Effacement: 50 Station: -4 FETUS A EGA: 31.3 EGA: 31.3 Monitoring: External US Monitoring: External US FHR- Baseline: 140 Variability: Moderate 6-25bpm Accelerations: 15X15 Decelerations: None FHR Category: Category I FHR Category: Category I Presentation: Vertex Admit Comment: admit for magnesium neuroprophylaxis and tocolysis, steroids for flm and gbs prophylaxis -check wet prep, gbs, gc/chlam PLANS FOR LABOR AND DELIVERY Labor and Delivery: None Pain Management: None Feeding Preference: Breast Benefit of Breast Feed Discussed: Yes Circumcision: Yes INFORMED CONSENT Signature: with User ID: [email or web address] Signature: with User ID: [email or web address] : with User ID: [email or web address]
[2017-03-26] MEDS ORDERED: IBUPROFEN 800 MG TABLET PO SCH (06:00)
[2017-03-26] MEDS: DOCUSATE SODIUM 100 MG CAPSULE PO SCH ×2 (09:52→18:01)
[2017-03-26] MEDS: FERROUS SULFATE 325 MG TABLET PO SCH ×2 (09:52→18:01)
[2017-03-26] MEDS: PRENATAL VITAMIN W-O CA NO5/FE FUMARATE/FA CAPSULE PO SCH (09:52)
[2017-03-26] MEDS: FAMOTIDINE 20 MG TABLET PO SCH ×2 (09:52→21:36)
[2017-03-26] MEDS: SENNOSIDES/DOCUSATE 8.6-50 MG 1 EACH TABLET PO SCH (09:54)
--- NOTE | 2017-03-26 10:38 | PDOC PROGRESS REPORT ---
Subjective-OB Subjective: Post Delivery Day: 1 26 year old. Denies any needs at this time, states lochia is stable, pain is well controlled, voiding without difficulty, passing gas, tolerating diet. Physical Exam (OB) Vital Signs: Temp Pulse Resp BP Pulse Ox 98.5 F 95 15 102/58 L 97 03/26/17 08:05 03/26/17 08:05 03/26/17 08:05 03/26/17 08:05 03/26/17 08:05 Intake & Output 03/25/17 03/26/17 03/27/17 06:59 06:59 06:59 Weight 144.2 kg - Lochia Lochia Amount: Scant < 10 ml Lochia Color: Rubra/Red - Abdomen Description: Soft Hernia Present: No Fundal Description: Firm, Midline Fundal Height: u/u - u/2 Objective-Diagnostic Laboratory: 03/26/17 02:14 03/26/17 03/26/17 03/26/17 01:20 02:14 02:14 WBC 9.7 RBC 3.94 Hgb 11.4 L Hct 32.1 L MCV 82 MCH 29.0 MCHC 35.6 RDW 14.0 Plt Count 96 L Seg Neutrophils % 78.7 H Lymphocytes % 15.5 Monocytes % 5.2 Eosinophils % 0.2 Basophils % 0.4 Absolute Neutrophils 7.7 Absolute Lymphocytes 1.5 Absolute Monocytes 0.5 Absolute Eosinophils 0.0 Absolute Basophils 0.0 Urine Color STRAW Urine Appearance CLEAR Urine pH 7.0 Ur Specific [place] 1.005 Urine Protein NEGATIVE Urine Glucose (UA) NEGATIVE Urine Ketones NEGATIVE Urine Blood NEGATIVE Urine Nitrite NEGATIVE Ur Leukocyte Esterase NEGATIVE Blood Type O POSITIVE Antibody Screen NEGATIVE Assessment and Plan(PN) - Assessment and Plan (1) Vaginal delivery Is this a current diagnosis for this admission?: Yes Plan: routine pp care - Time Spent with Patient Time with patient: Less than 15 minutes Critical Time spent with patient: Less than 15 minutes Medications reviewed and adjusted accordingly: Yes - Disposition Anticipated Discharge: Home Within: within 24 hours
[2017-03-26] MEDS: SERTRALINE HCL 50 MG TABLET PO SCH (10:55)
[2017-03-26] MEDS: ACETAMINOPHEN WITH CODEINE #3 TABLET PO PRN (21:36)
[2017-03-27] MEDS: ACETAMINOPHEN WITH CODEINE #3 TABLET PO PRN ×3 (05:44→22:24)
[2017-03-27 07:24] LABS: HEMATOCRIT 30.1 % (36.0-47.0); HEMOGLOBIN 10.6 g/dL (12.0-15.5); HGB HCT DIFFERENCE 1.7; MEAN CORPUSCULAR HGB CONC 35.1 g/dL (32.0-36.0); MEAN CORPUSCULAR VOLUME 83 fl (80-97); RED BLOOD COUNT 3.64 10^6/uL (3.72-5.28); RED CELL DISTRIBUTION WIDTH 14.2 % (11.5-14.0); WHITE BLOOD COUNT 7.7 10^3/uL (4.0-10.5)
[2017-03-27 07:41] LABS: HEPATITIS C VIRUS AB <0.1 s/co ratio (0.0-0.9)
--- NOTE | 2017-03-27 10:02 | PDOC PROGRESS REPORT ---
Subjective-OB Subjective: Post Delivery Day: 2 26 year old. Denies any needs at this time, states lochia is stable, pain well controlled, voiding without difficulty. Physical Exam (OB) Vital Signs: Temp Pulse Resp BP Pulse Ox 98.5 F 90 16 113/60 98 03/27/17 08:21 03/27/17 08:21 03/27/17 08:21 03/27/17 08:21 03/27/17 08:21 Intake & Output 03/26/17 03/27/17 03/28/17 06:59 06:59 06:59 Weight 144.2 kg - PIH/Pre-Eclampsia DTR's: 2 + Epigastric Pain: No Visual Changes: No - Lochia Lochia Amount: Scant < 10 ml Lochia Color: Rubra/Red - Abdomen Description: Soft, Flat Hernia Present: No Fundal Description: Firm, Midline Fundal Height: u/u - u/2 Objective-Diagnostic Laboratory: 03/27/17 07:00 03/27/17 07:00 WBC 7.7 RBC 3.64 L Hgb 10.6 L Hct 30.1 L MCV 83 MCH 29.0 MCHC 35.1 RDW 14.2 H Plt Count 96 L Assessment and Plan(PN) - Assessment and Plan (1) Vaginal delivery Is this a current diagnosis for this admission?: Yes - Time Spent with Patient Time with patient: Less than 15 minutes Critical Time spent with patient: Less than 15 minutes Medications reviewed and adjusted accordingly: Yes - Disposition Anticipated Discharge: Home Within: within 24 hours
[2017-03-27] MEDS: PRENATAL VITAMIN W-O CA NO5/FE FUMARATE/FA CAPSULE PO SCH (10:27)
[2017-03-27] MEDS: SENNOSIDES/DOCUSATE 8.6-50 MG 1 EACH TABLET PO SCH (10:27)
[2017-03-27] MEDS: DOCUSATE SODIUM 100 MG CAPSULE PO SCH ×2 (10:27→17:24)
[2017-03-27] MEDS: FAMOTIDINE 20 MG TABLET PO SCH ×2 (10:28→22:24)
[2017-03-27] MEDS: FERROUS SULFATE 325 MG TABLET PO SCH ×2 (10:28→17:24)
[2017-03-27] MEDS: SERTRALINE HCL 50 MG TABLET PO SCH (11:02)
--- NOTE | 2017-03-28 08:30 | PDOC DISCHARGE SUMMARY ---
Final Diagnosis Discharge Date: 03/28/17 - Final Diagnosis (1) Vaginal delivery Is this a current diagnosis for this admission?: Yes (2) Acute blood loss anemia Is this a current diagnosis for this admission?: Yes Discharge Data - Discharge Medication Home Medications: Pv W-O Vit A/Iron,Carbonyl/FA [Prenatabs Obn Tablet] 1 tab PO DAILY 09/16/11 Docusate Sodium [Colace 100 mg Capsule] 100 mg PO BID #60 capsule 03/28/17 Ferrous Sulfate [Feosol 325 mg Tablet] 325 mg PO BID #60 tablet 03/28/17 Sertraline HCl [Zoloft 50 mg Tablet] 50 mg PO DAILY@1100 #30 tablet 03/28/17 Gestational Age: 37.5 Reason(s) for Admission: Onset of Labor Procedures: NST Intrapartum Procedure(s): Spontaneous Vaginal Delivery - Data Baby 1 Male at 1 minute: 8 at 5 minutes: 9 Weight: 3430 kg Home with Mother: Yes Complications: No - Diagnosis Test Laboratory: Temp Pulse Resp BP Pulse Ox 98.7 F 92 16 134/79 H 97 03/27/17 21:49 03/27/17 21:49 03/27/17 21:49 03/27/17 21:49 03/27/17 21:49 03/26/17 03/26/17 03/27/17 01:20 02:14 07:00 RBC 3.94 3.64 L Hgb 11.4 L 10.6 L Hct 32.1 L 30.1 L Urine Opiates Screen NEGATIVE - Discharge information/Instructions Discharge Activity: Activity As Tolerated, Pelvic Rest, No tub bath Discharge Diet: Regular Disposition: HOME, SELF-CARE Follow up with: [facility] in: 4, Weeks
[2017-03-28] MEDS: SERTRALINE HCL 50 MG TABLET PO SCH (10:54)
[2017-03-28] MEDS: SENNOSIDES/DOCUSATE 8.6-50 MG 1 EACH TABLET PO SCH (10:54)
[2017-03-28] MEDS: DOCUSATE SODIUM 100 MG CAPSULE PO SCH (10:54)
[2017-03-28] MEDS: FAMOTIDINE 20 MG TABLET PO SCH (10:54)
[2017-03-28] MEDS: FERROUS SULFATE 325 MG TABLET PO SCH (10:54)
[2017-03-28] MEDS: PRENATAL VITAMIN W-O CA NO5/FE FUMARATE/FA CAPSULE PO SCH (10:54)
[2017-03-28 11:26] VITALS: BP 134/79
== END 2017-03-28 11:43 | disposition home or self-care (01) | DRG 775 ==
LOC: LC 01:09 → LR 01:51 → 2S 05:30
PROVIDERS: ADMIT Obstetrics & Gynecology; ATTEND Obstetrics & Gynecology
PROC: 10E0XZZ Delivery of Products of Conception, External Approach (ICD-10-PCS; principal; 2017-03-26)
PROC: 4A1HXCZ Monitoring of Products of Conception, Cardiac Rate, External Approach (ICD-10-PCS; 2017-03-26)
DX: O62.3 Precipitate labor (principal); D62 Acute posthemorrhagic anemia; O69.81X0 Labor and delivery complicated by cord around neck, without compression, not applicable or unspecified; Z3A.37 37 weeks gestation of pregnancy; O99.02 Anemia complicating childbirth; Z37.0 Single live birth
CPT/HCPCS: 36415; 80307; 81005; 85025; 85027; 86592; 86762; 86803; 86804; 86850; 86900; 86901; 87340; J2590; J3490

== ENCOUNTER 2017-05-20 06:18 | Day surgery (SDC) | payer MEDICAID ==
[2017-05-10 12:04] LABS: HEMATOCRIT 39.3 % (36.0-47.0); HEMOGLOBIN 13.4 g/dL (12.0-15.5); HGB HCT DIFFERENCE 0.9; MEAN CORPUSCULAR HEMOGLOBIN 28.5 pg (27.0-33.4); MEAN CORPUSCULAR VOLUME 84 fl (80-97); RED BLOOD COUNT 4.69 10^6/uL (3.72-5.28); WHITE BLOOD COUNT 5.9 10^3/uL (4.0-10.5)
[2017-05-10 12:06] LABS: APPEARANCE,URINE CLEAR; BILIRUBIN,URINE NEGATIVE (NEGATIVE); GLUCOSE, URINE NEGATIVE (NEGATIVE); KETONES,URINE NEGATIVE (NEGATIVE); LEUKOCYTE ESTERASE,URINE NEGATIVE (NEGATIVE); NITRITE,URINE NEGATIVE (NEGATIVE); PROTEIN,URINE NEGATIVE (NEGATIVE); URINE SPECIFIC GRAVITY 1.011; UROBILINOGEN,URINE NEGATIVE mg/dL (<2.0)
[~2017-05-20 06:18] MED LIST: LACTATED RINGERS 1000 ML IV PRN; LIDOCAINE 0.5% INJ-PF (5 MG/ML) 50 ML SDV SUBCUT PRN
[2017-05-20] MEDS ORDERED: FENTANYL CITRATE INJ/PF 100 MCG/2 ML AMPUL ONE (08:18)
[2017-05-20] MEDS ORDERED: HYDROMORPHONE HCL INJ/PF 2 MG/ML AMPULE ONE (08:18)
[2017-05-20] MEDS ORDERED: MIDAZOLAM 2 MG/2 ML INJ ONE (08:19)
[2017-05-20] MEDS ORDERED: EPHEDRINE SULFATE INJ 50 MG/1 ML AMPULE ONE (08:19)
[2017-05-20] MEDS ORDERED: PROPOFOL INJ 200 MG/20 ML VIAL IV ONE (08:19)
[2017-05-20] MEDS ORDERED: ACETAMINOPHEN 100 ML IV ONE (08:19)
[2017-05-20] MEDS ORDERED: PROMETHAZINE HCL INJ 25 MG/1 ML VIAL IV PRN (09:02)
[2017-05-20] MEDS ORDERED: MEPERIDINE HCL/PF INJ 25 MG/1 ML DISP.SYRIN IV PRN (09:02)
[2017-05-20] MEDS ORDERED: DIPHENHYDRAMINE HCL 50 MG/ML VIAL IV PRN (09:02)
[2017-05-20] MEDS ORDERED: FENTANYL CITRATE INJ/PF 100 MCG/2 ML AMPUL IV PRN ×3 (09:02)
--- NOTE | 2017-05-20 09:26 | Operative Report ---
Operative Report DATE OF SURGERY: 05/20/17 PREOPERATIVE DIAGNOSIS: Patient desires surgical sterilization POSTOPERATIVE DIAGNOSIS: Same OPERATION: Laparoscopic bilateral tubal fulguration SURGEON: BROOKE RUIZ ANESTHESIA: GA TISSUE REMOVED OR ALTERED: Fallopian tube COMPLICATIONS: None ESTIMATED BLOOD LOSS: 5 cc INTRAOPERATIVE FINDINGS: Normal uterus tubes and ovaries PROCEDURE: Patient was taken the OR and placed in supine position. General anesthesia was induced. She is placed in dorsolithotomy position using Glen stirrups. Her perineum abdomen were prepared and draped in sterile fashion. Her bladder was drained with a red rubber catheter. A sponge stick was placed in the vagina for manipulation of the uterus. An incision was made at the umbilicus. The natural umbilical defect was identified and dilated with a Zari clamp allowing a port to be placed in a blunt fashion. Laparoscopy confirmed appropriate placement. The abdomen was insufflated with CO2 gas. Each fallopian tube was identified and followed to its fimbriated end. Each tube was then cauterized at the mid isthmic portion moving back toward the uterine cornu with 5 successive bites. At the end of the case the gas was allowed to escape. The scope and port were removed at the same time. The fascia at the umbilicus was closed with a 2-0 Vicryl stitch and skin closed with 4-0 undyed Vicryl stitch. Sponge stick was removed from the vagina. Patient was placed back in supine position brought out of anesthesia and taken recovery room in stable condition.
[2017-05-20] MEDS ORDERED: MEPERIDINE HCL/PF INJ 25 MG/1 ML DISP.SYRIN ONE (09:33)
[2017-05-20] MEDS ORDERED: IBUPROFEN 800 MG TABLET PO PRN (10:05)
[2017-05-20] MEDS ORDERED: OXYCODONE-ACETAMINOPHEN 5-325 MG TABLET PO PRN ×2 (10:06)
[2017-05-20] MEDS ORDERED: KETOROLAC TROMETHAMINE INJ/PF 30 MG/1 ML SDV IV PRN (10:06)
[2017-05-20] MEDS ORDERED: RINGERS SOLUTION,LACTATED 1,000 ML IV PRN (10:07)
[2017-05-20 11:34] VITALS: BP 97/60
[2017-05-20] MEDS ORDERED: LIDOCAINE 2% INJ-PF (20 MG/ML) 2 ML AMPUL ONE (14:15)
[2017-05-20] MEDS ORDERED: SUCCINYLCHOLINE CHLORIDE INJ 200 MG/10 ML VIAL ONE (14:15)
[2017-05-20] MEDS ORDERED: NEOSTIGMINE METHYLSULFATE 10 MG/10 ML VIAL ONE (14:15)
[2017-05-20] MEDS ORDERED: ROCURONIUM BROMIDE INJ 50 MG/5 ML VIAL IV ONE (14:15)
[2017-05-20] MEDS ORDERED: ONDANSETRON HCL INJ/PF 4 MG/2 ML SDV ONE (14:15)
[2017-05-20] MEDS ORDERED: DEXAMETHASONE SOD PHOSPHATE INJ 4 MG/1 ML VIAL ONE (14:15)
[2017-05-20] MEDS ORDERED: GLYCOPYRROLATE INJ 0.4 MG/2 ML VIAL ONE (14:15)
== END 2017-05-20 11:35 | disposition home or self-care (01) ==
LOC: OROUT 06:18
PROVIDERS: ATTEND Obstetrics & Gynecology
PROC: 0U574ZZ Destruction of Bilateral Fallopian Tubes, Percutaneous Endoscopic Approach (ICD-10-PCS; principal; 2017-05-20 08:30)
DX: Z30.2 Encounter for sterilization (principal); Z79.899 Other long term (current) drug therapy; Z87.891 Personal history of nicotine dependence
CPT/HCPCS: 36415; 85027; 81005; 81025; 58670; J2250; J3490 ×3; J1100; J3010; J2175; J1885; J1170; J0330; J2405; J2704; J0131; 851

== ENCOUNTER 2018-01-19 10:43 | Emergency (ER) | payer SELFPAY ==
[2018-01-19 10:48] VITALS: BP 114/68
--- NOTE | 2018-01-19 10:58 | ER Document Report ---
HPI - HPI Patient complains to provider of: Right ear pain Onset: Yesterday Pain Level: 4 Context: 27-year-old female thinks he has swimmer's ear in the right ear. She tried some swimmer's eardrops which have not helped. No fever or chills. No swelling to the external ear. No recent upper respiratory infection. Associated Symptoms: None Exacerbated by: Movement Relieved by: Denies Recently seen / treated by doctor: Yes - ROS ROS Unobtainable: Yes ROS unobtainable due to patient's medical condition ROS below otherwise negative: Yes Systems Reviewed and Negative: Yes All other systems reviewed and negative - REPRODUCTIVE Reproductive: DENIES: : Past Medical History - General Information source: Patient - Social History Smoking Status: Never Smoker Frequency of alcohol use: None Drug Abuse: None Lives with: Family Family History: Reviewed & Not Pertinent Surgical Hx: Negative - Immunizations Hx Diphtheria, Pertussis, Tetanus Vaccination: Yes Vertical Provider Document - CONSTITUTIONAL Agree With Documented VS: Yes Exam Limitations: No Limitations General Appearance: No Apparent Distress - INFECTION CONTROL TRAVEL OUTSIDE OF THE [place] IN LAST 30 DAYS: No - HEENT HEENT: negative: Tympanic Membrane Red Notes: Mildly swollen right ear canal with tenderness. Pain with tragus and external ear movement. Mastoid is normal. No edema or swelling to the external ear. - NECK Neck: Supple. negative: Lymphadenopathy-Left, Lymphadenopathy-Right Course - Vital Signs Vital signs: Temp Pulse Resp BP Pulse Ox 99.0 F 82 14 114/68 100 01/19/18 10:47 01/19/18 10:47 01/19/18 10:47 01/19/18 10:47 01/19/18 10:47 Discharge - Discharge Clinical Impression: Right otitis externa Condition: Good Disposition: HOME, SELF-CARE Instructions: Use of Ear Drops ([facility]), Otitis Externa ([facility]) Additional Instructions: Warm compress Tylenol for pain Motrin for inflammation and pain Gentamicin ophthalmic drops in the ear to kill the bacterial infection of the ear canal Return for any swelling of the external ear or tenderness swelling behind or in front of the ear. Prescriptions: Gentamicin Sulfate 2 drop AD Q4H #5 ml Referrals: LENNY COBURN MD [Primary Care Provider] - Follow up as needed
== END 2018-01-19 11:13 | disposition home or self-care (01) ==
LOC: ER 10:43
DX: H60.91 Unspecified otitis externa, right ear (principal); H92.01 Otalgia, right ear
CPT/HCPCS: 99282

== ENCOUNTER 2018-01-20 12:08 | Emergency (ER) | payer OTHER ==
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
[2018-01-20 12:29] VITALS: BP 110/71
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
== END 2018-01-20 15:03 | disposition home or self-care (01) ==
LOC: ER 12:08
DX: S39.012A Strain of muscle, fascia and tendon of lower back, initial encounter (principal); S29.012A Strain of muscle and tendon of back wall of thorax, initial encounter; V43.52XA Car driver injured in collision with other type car in traffic accident, initial encounter; H60.90 Unspecified otitis externa, unspecified ear
CPT/HCPCS: 72070; 72110; 99283